=== PATIENT | male | born 1955 | race Caucasian/White ===

== ENCOUNTER 2018-10-10 08:05 | Observation (INO) ==
--- NOTE | 2018-10-07 11:13 | EKG Report ---
Test Performed on : 10/07/2018 11:01:43 AM Test Reason : PAT Blood Pressure : / mmHG Vent. Rate : 080 BPM Atrial Rate : 080 BPM P-R Int : 162 ms QRS Dur : 096 ms QT Int : 374 ms P-R-T Axes : 047 009 016 degrees QTc Int : 431 ms Normal sinus rhythm. Normal ECG No previous ECGs available Confirmed by Rayo Cleaning MD ([id number]) on 10/08/2018 12:06:52 PM
[2018-10-07 11:33] LABS: HEMATOCRIT 45.7 % (42.0-52.0); HEMOGLOBIN 14.2 g/dL (14.0-18.0); MCH 29.6 PG (27-31); MCHC 31.1 g/dL (33-37); MCV 95.4 FL (81-99); MPV 11.6 FL (7.4-10.4); RBC 4.79 XMIL (4.7-6.1); RDW 12.9 % (11.5-14.5); WBC 7.2 X1000 (4.8-10.8)
[2018-10-07 11:56] LABS: AGAP 9; BUN 12 mg/dL (8-22); CALCIUM 9.8 mg/dL (8.8-10.2); CHLORIDE 100 mmol/L (98-107); COSMO 282; CREATININE 0.9 mg/dL (0.7-1.2); ESTIMATED GFR > 60; GLUCOSE 123 mg/dL (70-104); POTASSIUM 3.7 mmol/L (3.5-5.1); SODIUM 141 mmol/L (136-145); TCO2 32 mmol/L (25-35)
[2018-10-10] MEDS ORDERED: CLINDAMYCIN 600 MG/D5W 600 MG/50 ML IVPB ONE (08:27)
[2018-10-10] MEDS ORDERED: LR 1,000 ML ONE ×2 (08:27→18:20)
[2018-10-10] MEDS ORDERED: BACTROBAN OINTMENT ONE (11:00)
[2018-10-10] MEDS ORDERED: CLINDAMYCIN ONE (11:00)
[2018-10-10] MEDS ORDERED: ROBINUL ONE (11:03)
[2018-10-10] MEDS ORDERED: ZOFRAN ONE (11:03)
[2018-10-10] MEDS ORDERED: FENTANYL ONE (11:03)
[2018-10-10] MEDS ORDERED: XYLOCAINE-MPF 2% ONE (11:03)
[2018-10-10] MEDS ORDERED: DECADRON ONE (11:03)
[2018-10-10] MEDS ORDERED: LUBRIFRESH PM OPH OINTMENT ONE (11:04)
[2018-10-10] MEDS ORDERED: DIPRIVAN 1% ONE ×2 (11:04→11:17)
[2018-10-10] MEDS ORDERED: QUELICIN (DOSE) ONE (11:33)
[2018-10-10] MEDS ORDERED: EPHEDRINE ONE (11:46)
[2018-10-10] MEDS ORDERED: SODIUM CHLORIDE 0.9% 10 ML ONE (11:46)
[2018-10-10] MEDS ORDERED: EPINEPHRINE ONE (11:51)
[2018-10-10] MEDS ORDERED: XYLOCAINE 1% ONE (11:52)
[2018-10-10] MEDS ORDERED: LABETALOL IV ONE (16:30)
[2018-10-10] MEDS ORDERED: NAROPIN 0.5% ONE (16:34)
[2018-10-10] MEDS ORDERED: LR 500 ML ONE (17:45)
[2018-10-10 17:48] LABS: URINE SOURCE CATH
[2018-10-10 17:50] LABS: BILIRUBIN URINE NEGATIVE (NEGATIVE); BLOOD URINE NEGATIVE (NEGATIVE); COLOR YELLOW; GLUCOSE URINE NEGATIVE (NEGATIVE); KETONE URINE NEGATIVE (NEGATIVE); LEUKOCYTES URINE NEGATIVE (NEGATIVE); NITRITE URINE NEGATIVE (NEGATIVE); PH URINE 7.5; PROTEIN URINE NEGATIVE (NEGATIVE); SP GRAVITY URINE 1.011; TURBIDITY URINE CLEAR (CLEAR); UR EPITHELIAL CELLS <10 /HPF (<10); URINE BACTERIA NEGATIVE /HPF; URINE RBC <10 /HPF (<10); URINE WBC <10 /HPF (<10); UROBILINOGEN URINE NORMAL (NORMAL)
[2018-10-10] MEDS ORDERED: DILAUDID IV PRN (18:08)
[2018-10-10] MEDS ORDERED: COZAAR PO ONE (18:15)
[2018-10-10] MEDS ORDERED: NORVASC PO ONE (18:15)
[2018-10-10] MEDS ORDERED: PERCOCET-5 PO PRN (18:15)
[2018-10-10] MEDS ORDERED: APRESOLINE ONE (18:31)
[2018-10-10] MEDS ORDERED: PERCOCET-5 ONE (18:31)
[2018-10-10] MEDS: LR 1,000 ML IV SCH (19:42)
[2018-10-10] MEDS: CLINDAMYCIN 600 MG/D5W 600 MG/50 ML IVPB IV SCH (19:48)
[2018-10-10] MEDS: DECADRON IV SCH (19:49)
--- NOTE | 2018-10-10 20:13 | OPERATIVE NOTE ---
PROCEDURE DATE: 10/10/2018 PREOPERATIVE DIAGNOSIS: Left parotid mass. POSTOPERATIVE DIAGNOSIS: Left deep lobe parotid mass. PROCEDURE: 1. Left total parotidectomy with facial nerve dissection. 2. Permacol implant. 3. Complex wound closure of ear 13 cm. COMPLICATIONS: None. ANESTHESIA: General endotracheal intubation. FINDINGS: Deep lobe of vascular malformation. The proximal and distal extent were both centered over the retromandibular vein superiorly and inferiorly before it meets the jugular. DESCRIPTION OF PROCEDURE: Patient was identified, consented. Options were reviewed. He was brought to the operating room, placed in supine position where general anesthesia was induced with endotracheal intubation. The left face was prepped and draped in usual sterile fashion. 1% lidocaine with 1:100,000 epinephrine was injected into the incision site, which was curvilinear S based off the tragus and lobule curving down inferiorly from there. The subcutaneous dissection was performed in an anterior fashion from incision. Meticulous attention was paid to hemostasis throughout the case using bipolar electrocautery, ties, ligatures and LigaSure system as needed. The fascia layer was incised in a preauricular region and carried down along the ear cartilage to the appropriate depth. The sternocleidomastoid was from the tail of parotid. Facial nerve was identified. The facial nerve was dissected out to its inferior branch. The superior branch was not dissected. The inferior branch was completely dissected. There were 3 branches. Once the superficial lobe was delivered off the facial nerve, it was clear that the mass was deep to the facial nerve, and this was a vascular malformation. Proximal and distal control were achieved in the retromandibular vein for this roughly 2-inch vascular malformation. Suture ligature was used in double fashion for control of the vessel that this was based on. The facial nerve branches of the inferior division were gently dissected off the mass and translocated superiorly so that the mass could be delivered and dissected. After significant time dissecting the mass, this was removed in its entirety with good proximal and distal control. Permacol graft, 2 x 4 cm, was secured across the edge of the remaining parotid superficial lobe to avoid contact between the parotid, remaining wound and the skin. The skin was trimmed. Two drains were placed, 1 inferior, 1 superior. The mass layer was secured back to the ear with 4-0 simple interrupted Vicryl stitch. The skin incision was then closed over the tragus and lobule and inferiorly with simple interrupted 4-0 Vicryl deep and intermediate subcutaneous sutures and a combination of simple interrupted 5-0 Prolene from the ear lobule up to the tragus and superiorly and superficial clips inferior to the lobule. The drains were secured. A gentle pressure dressing was applied. He tolerated the procedure well, was allowed to recover from anesthesia, extubated and transferred to the recovery room in stable condition. cc: Robert Zarate MD
[2018-10-10] MEDS: APRESOLINE IV PRN (20:54)
[2018-10-10] MEDS ORDERED: PHENERGAN IV ONE (21:17)
[2018-10-10] MEDS ORDERED: ZOFRAN PO ONE (21:17)
[2018-10-10] MEDS ORDERED: SODIUM CHLORIDE 0.9% INJ ONE (21:17)
[2018-10-10] MEDS ORDERED: ZOFRAN IV PRN (21:17)
[2018-10-11] MEDS: PERCOCET-5 PO PRN ×2 (01:12→04:59)
[2018-10-11] MEDS: CLINDAMYCIN 600 MG/D5W 600 MG/50 ML IVPB IV SCH ×2 (01:14→09:34)
[2018-10-11] MEDS: DECADRON IV SCH ×2 (01:15→09:34)
[2018-10-11] MEDS: LR 1,000 ML IV SCH (04:58)
[2018-10-11] MEDS ORDERED: SYNTHROID PO SCH (09:00)
[2018-10-11] MEDS ORDERED: NORVASC PO SCH (09:00)
[2018-10-11] MEDS ORDERED: COZAAR PO SCH (09:00)
[2018-10-11] MEDS: APRESOLINE IV PRN ×2 (11:45→13:03)
[2018-10-11] MEDS ORDERED: SALINE LOCK IV FLUID XX ONE (11:54)
[2018-10-11] MEDS ORDERED: CATAPRES PO SCH (13:00)
[2018-10-11 14:17] VITALS: BP 128/68
[2018-10-11] MEDS ORDERED: ZOCOR PO SCH (21:00)
== END 2018-10-11 15:45 | disposition home or self-care (01) ==
LOC: PAT 08:05 → OPS 08:05 → ICU 08:05
PROVIDERS: ADMIT Otolaryngology Otolaryngology/Facial Plastic Surgery; ATTEND Otolaryngology Otolaryngology/Facial Plastic Surgery